=== PATIENT | male | born 1980 | race Caucasian/White ===

== ENCOUNTER 2020-06-18 20:35 | Observation (INO) ==
[2020-06-18] MEDS ORDERED: Heparin DRIP 25,000 UNITS BAG 25,000 UNITS/500 ML BAG IV SCH ×3 (20:45→23:45)
[2020-06-18] MEDS ORDERED: Heparin 5000 UNITS/ML 1 mL VIAL IV SCH ×2 (21:00→22:00)
[2020-06-18] MEDS ORDERED: Heparin DRIP 25,000 UNITS BAG 25,000 UNITS/500 ML BAG ONE (21:20)
[2020-06-18 21:58] LABS: ABS Basophils 0.1 10^3/ul (0-0.2); ABS Eosinophils 0.4 10^3/ul (0-0.6); ABS Lymphocytes 1.2 10^3/ul (1.0-4.8); ABS Monocytes 1.3 10^3/ul (0-0.8); ABS Neutrophils 9.5 10^3/ul (1.5-7.7); Eosinophil % 3.3 %; Hematocrit 39 % (42-52); Hemoglobin 13.2 g/dL (14.0-18.0); Lymphocyte % 9.9 %; Mean Corpuscular HGB Conc 34 g/dL (31-36); Mean Corpuscular Hemoglobin 30 pg (27-31); Mean Corpuscular Volume 89 fL (80-94); Mean Platelet Volume 7.9 fL (7.4-10.4); Platelet Count 402 10^3/uL (150-450); Red Blood Count 4.39 10^6 /uL (4.18-5.48); Red Cell Distribution Width 13 % (10-15); White Blood Count 12.6 10^3/uL (3.5-10.8)
[2020-06-18 22:16] LABS: EGFR African American 120.4 (>60); EGFR Non-African American 99.5 (>60)
[2020-06-18] MEDS ORDERED: Ondansetron 4 mg VIAL 2 MG/ML 2 ml VIAL IV PRN (23:24)
[2020-06-18] MEDS ORDERED: Al Hydrox/Mg Hydrox/Simet LIQ 30 ML UDC PO PRN (23:24)
[2020-06-19] MEDS: Heparin DRIP 25,000 UNITS BAG 25,000 UNITS/500 ML BAG IV SCH ×2 (01:45→11:42)
[2020-06-19] MEDS: Heparin 5000 UNITS/ML 1 mL VIAL IV SCH ×2 (04:51→11:40)
[2020-06-19] MEDS ORDERED: Multivitamins/Minerals TAB PO SCH (07:00)
[2020-06-19 07:06] LABS: ABS Basophils 0.1 10^3/ul (0-0.2); ABS Eosinophils 0.7 10^3/ul (0-0.6); ABS Lymphocytes 1.5 10^3/ul (1.0-4.8); ABS Monocytes 1.2 10^3/ul (0-0.8); ABS Neutrophils 8.4 10^3/ul (1.5-7.7); Eosinophil % 5.5 %; Hematocrit 37 % (42-52); Hemoglobin 12.7 g/dL (14.0-18.0); Lymphocyte % 12.3 %; Mean Corpuscular HGB Conc 35 g/dL (31-36); Mean Corpuscular Hemoglobin 31 pg (27-31); Mean Corpuscular Volume 89 fL (80-94); Mean Platelet Volume 8.1 fL (7.4-10.4); Platelet Count 370 10^3/uL (150-450); Red Cell Distribution Width 13 % (10-15); White Blood Count 11.8 10^3/uL (3.5-10.8)
[2020-06-19 07:30] LABS: BUN/Creatinine Ratio 15.5 (8-20); Calcium 8.9 mg/dL (8.6-10.3); EGFR African American 123.7 (>60); EGFR Non-African American 102.3 (>60); Potassium 3.8 mmol/L (3.5-5.0)
[2020-06-19 13:22] LABS: Urine Appearance Cloudy; Urine Bilirubin Negative (Negative); Urine Blood Negative (Negative); Urine Color Amber; Urine Glucose Negative (Negative); Urine Ketones Negative (Negative); Urine Nitrite Negative (Negative); Urine Protein Negative (Negative); Urine Specific Gravity 1.024 (1.010-1.030); Urine Urobilinogen Negative (Negative)
[2020-06-19 15:22] VITALS: BP 134/88
== END 2020-06-19 15:30 | disposition home or self-care (01) ==
LOC: MEDTELE 20:35 → ED 20:35 → MEDTELE 06-19 01:35
PROVIDERS: ADMIT Student in an Organized Health Care Education/Training Program; ATTEND Internal Medicine